=== PATIENT | male | born 1995 | race Caucasian/White ===

== ENCOUNTER 2022-02-14 01:33 | Emergency (ER) | payer SELFPAY ==
[2022-02-14 01:39] VITALS: BP 121/76; PULSE 96; RESP 20; TEMP 36.7; O2SAT 98; BMI 22.1
--- NOTE | 2022-02-14 01:50 | XRR_ITS ---
PROCEDURE INFORMATION: Exam: XR Right Foot Exam date and time: 02/14/2022 1:54 AM Age: 26 years old Clinical indication: Injury or trauma; Other: Kicked step; Blunt trauma; Foot; Right; Additional info: Accidentally kicked camper step-foot pain TECHNIQUE: Imaging protocol: XR Right foot. Views: 3 or more views. COMPARISON: No relevant prior studies available. FINDINGS: Bones/joints: Normal. Soft tissues: Normal. XR/XR foot RT min 3V* [id number] IMPRESSION: No acute findings.
--- NOTE | 2022-02-14 01:54 | W.ED.EXTPRO ---
HPI - Extremity Problem General: Chief complaint: Extremity Injury, Lower Stated complaint: Rt Foot Injury Time Seen by Provider: 02/14/22 01:34 History of Present Illness: Patient is a 26-year-old male comes to the ED with right foot injury. Injury occurred approximately 3-4 nights ago. Patient says walking up into his camper at night and excellently kicked one of the metal steps on the camper with his right foot. He is now having pain at the top and midfoot region along with pain in second toe. The pain is rated a 6 out of 10. He says it hurts whenever he weightbears. He has not taken anything for pain before coming to the ED. Associated symptoms: Deny chest pain, fever(s) or rash Review of Systems Const: Denies: fever(s), chills or fatigue Eyes: Denies: change in vision or eye discomfort ENMT: Denies: throat pain, odynophagia, nasal discharge or nasal congestion Card: Denies: chest pain, palpitations, edema, swelling of feet/ankles, dyspnea on exertion or orthopnea Resp: Denies: dyspnea, productive cough or non-productive cough GI: Denies: abdominal pain, nausea, vomiting, diarrhea, constipation or hematochezia : Denies: flank pain, difficulty urinating, dysuria or hematuria Musc: Reports: extremity pain (right foot pain and second toe pain.); Denies: neck pain, back pain or extremity swelling Skin/Breast: Denies: rash or new lesions Neuro: Denies: headache(s), numbness in extremities or weakness in extremities [facility] PFSH: Medical History No pertinent family history Surgical History No pertinent past surgical history Physical Exam Const: COMMON NORMALS: patient oriented x3 GENERAL APPEARANCE: cooperative and comfortable HENMT: COMMON NORMALS: normocephalic HEAD & SCALP: normocephalic MOUTH: Normal oral and palatal mucosa present THROAT: posterior oropharynx normal and uvula midline Neck/C-Spine: COMMON NORMALS: supple GENERAL: Yes normal visual inspection Resp: COMMON NORMALS: normal respiratory effort, No retractions, No use of accessory muscles and clear to auscultation bilaterally AUSCULTATION: clear to auscultation bilaterally Cardio: COMMON NORMALS: regular rate, regular rhythm, S1 normal heart sound present, S2 normal heart sound present, No gallops present (Cardio), No clicks present (Cardio), No murmurs present (Cardio) and Peripheral pulses 2+ throughout RATE: regular rate RHYTHM: regular rhythm HEART SOUNDS: S1 normal heart sound present and S2 normal heart sound present PERIPHERAL PULSES: Peripheral pulses 2+ throughout GI: COMMON NORMALS: Normal to inspection, nondistended, normoactive bowel sounds present, Soft to palpation, non-tender and no masses PALPATION: Yes Soft to palpation : COMMON NORMALS: Yes no CVA tenderness BLADDER/KIDNEY EXAM: Yes no CVA tenderness Back/Pelvis: COMMON NORMALS: no CVA tenderness Extremity: COMMON NORMALS: normal to inspection, full ROM and no pedal edema NARRATIVE EXTREMITY EXAM: No nailbed or nail damage noted on right foot. Neuro: COMMON NORMALS: patient oriented x3 and moves all extremities Skin: GENERAL SKIN EXAM: dry skin Course Vital Signs: Vital signs: Vital Signs Temperature 98.0 F 02/14/22 01:39 Pulse Rate 96 02/14/22 01:39 Respiratory Rate 20 H 02/14/22 01:39 Blood Pressure 121/76 02/14/22 01:39 Pulse Oximetry 98 02/14/22 01:39 MDM - Extremity (Nontraumatic) Medical Decision Making Patient is a 26-year-old male comes to the ED with right foot and second toe pain after he excellently kicked it on the metal step of his camper. Vital stable. Patient appears in no acute distress or pain. Exam of right foot is benign and no deformities or nailbed/nail damage noted. Neurovascular tact. X-ray of right foot shows a nondisplaced proximal phalanx fracture of second digit. Patient was put in a stiff soled shoe and discharged home with some crutches. I placed order with case management for patient to have follow-up with Dr. Eason. He was sent home with a prescription for hydrocodone for acute pain. Return to ED precautions given. Patient was told case management should contact them next several days set up an appointment with Dr. Eason. Patient understood and agreed with plan. Imaging Data Xray Ortho: My impression: Right foot x-ray shows a nondisplaced proximal phalanx fracture of second digit. Discharge Plan Discharge Patient Disposition: Home Clinical Impression: Fracture of toe of right foot Qualifiers: Encounter type: initial encounter Toe: lesser toe Fracture type: closed Phalanx: proximal Fracture alignment: nondisplaced Qualified Code(s): S92.514A - Nondisplaced fracture of proximal phalanx of right lesser toe(s), initial encounter for closed fracture Condition: Stable Discharge Orders: Discharge ED (Routine); Ordered 02/14/22 Ordered By: Chris Gonzáles Referrals: Phuong Calderon, [facility] [employer] [facility] [Primary Care Provider] - Discharge Diet: Regular Discharge Activity: Use walker/crutches as instructed Patient Instructions: Toe Fracture (ED) Activity Restrictions/Additional Instructions: Follow-up with medical provider as directed. manager of revenue regarding in the next several days set up appointment Dr. Eason the fern picker for further evaluation management of toe fracture.Take medications as prescribed. Wear stiff soled shoe and use crutches to limit weightbearing in these next couple days and you can advance weightbearing while wearing stiff soled shoe as tolerated. Return to the ER or your medical provider if condition worsens. Please read and understand discharge instructions. Thank you for choosing [facility] for your healthcare needs today. Please realize this is an emergency room and that we are providing you with a medical screening exam and this may not be complete and all inclusive of all the testing and or work up that you may need to determine your ailment or severity of your illness. It is very important that you follow up as instructed or that you return to the Emergency Department should you have concerns or if your condition changes or worsens in any way. Coding Level of Care Code ED Internist Medical Doctor Md for Alfreda Hay Exam Comprehensive
[2022-02-14] MEDS: HYDROcodone-acetaminophen 5-325 mg Tablet 1 TAB PO (02:06)
--- NOTE | 2022-02-15 10:05 | DCPLANNER ---
Addendum entered by Glenna Mott 03/10/22 20:33: Patient had a follow up appointment scheduled with ortho - patient did not attend appointment. Original Note: manager of corporate communications had message to schedule a follow up appointment for patient with ortho. manager of corporate communications sent patients information to the front staff at ortho. Patients information will be printed and reviewed. Clinic will call patient with appointment information.
== END 2022-02-14 02:45 | disposition home or self-care (01) ==
PROVIDERS: Emergency Provider Physician Assistant; PCP Speech-Language Pathologist
DX: S92.514A Nondisplaced fracture of proximal phalanx of right lesser toe(s), initial encounter for closed fracture (principal); W22.09XA Striking against other stationary object, initial encounter
CPT/HCPCS: 73630; 99283; E0114

== ENCOUNTER 2024-08-30 14:08 | Inpatient (IN) | payer BC, MEDICAID, SELFPAY ==
[2024-08-30] VITALS (45 sets, daily range): BP systolic 95–168; BP diastolic 46–102; PULSE 63–98; RESP 12–30; TEMP 36.6–36.9; O2SAT 92–100; BMI 21.5; BMI 22.4
--- NOTE | 2024-08-30 14:24 | CTR_ITS ---
PROCEDURE INFORMATION: Exam: CT Chest Without Contrast; Diagnostic Exam date and time: 08/30/2024 5:36 PM Age: 28 years old Clinical indication: Other: Lt sided pain; Chest wall pain; Additional info: Chest wall pain, left side pain TECHNIQUE: Imaging protocol: Diagnostic computed tomography of the chest without contrast. Radiation optimization: All CT scans at this facility use at least one of these dose optimization techniques: automated exposure control; mA and/or kV adjustment per patient size (includes targeted exams where dose is matched to clinical indication); or iterative reconstruction. COMPARISON: CR (CHEST, ) 08/30/2024 5:09 PM RADIATION DOSE METRICS: Total DLP (mGy-cm): 0 FINDINGS: Tubes, catheters and devices: The endotracheal tube is in good position within the trachea. Lungs: A few blebs are noted in the lung apices bilaterally. Pleural spaces: Unremarkable. No pneumothorax. No pleural effusion. Heart: Unremarkable. No cardiomegaly. No pericardial effusion. Coronary arteries: There is no evidence of coronary artery calcifications. Lymph nodes: Unremarkable. No enlarged lymph nodes. Vasculature: Unremarkable. No aortic aneurysm. Bones/joints: Unremarkable. No acute fracture. Soft tissues: Unremarkable. PROCEDURE INFORMATION: Exam: CT Abdomen And Pelvis Without Contrast Exam date and time: 08/30/2024 5:36 PM Age: 28 years old Clinical indication: Other: Lt sided pain; Chest wall pain; Additional info: Chest wall pain, left side pain TECHNIQUE: Imaging protocol: Computed tomography of the abdomen and pelvis without contrast. Radiation optimization: All CT scans at this facility use at least one of these dose optimization techniques: automated exposure control; mA and/or kV adjustment per patient size (includes targeted exams where dose is matched to clinical indication); or iterative reconstruction. COMPARISON: CR (CHEST, ) 08/30/2024 5:09 PM RADIATION DOSE METRICS: Total DLP (mGy-cm): 772.03 FINDINGS: Lungs: Lung bases are clear. No pleural effusion. Liver: Normal. No mass. Gallbladder and biliary ducts: Normal. No calcified stones. No ductal dilation. Pancreas: Normal. No ductal dilation. Spleen: Normal. No splenomegaly. Adrenal glands: Normal. No mass. Kidneys and ureters: Normal. No hydronephrosis. Stomach and bowel: Liquid stool is noted throughout the colon. Appendix: No evidence of appendicitis. Intraperitoneal space: Unremarkable. No free air. No significant fluid collection. Vasculature: Unremarkable. No abdominal aortic aneurysm. Lymph nodes: Unremarkable. No enlarged lymph nodes. Urinary bladder: Unremarkable as visualized. Reproductive: Unremarkable as visualized. Bones/joints: Unremarkable. No acute fracture. Soft tissues: Unremarkable. CT/[place] [id number] IMPRESSION: 1. No acute findings. 2. Endotracheal tube in good position 3. Mild paraseptal emphysema IMPRESSION: Liquid stool in the colon could indicate acute enterocolitis
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
[2024-08-30] MEDS: LORazepam 2 mg/mL INJ 1 mL 1 MG IVP ×2 (14:30→15:15)
[2024-08-30 14:53] LABS: Basophils # 0.1 10^3/uL (0.0-0.1); Basophils % 0.2 %; Eosinophils % 0.2 %; Hematocrit 46.8 % (37-53); Lymphocytes # 2.3 10^3/uL (0.8-4.8); Lymphocytes % 8.8 %; Mean Corpuscular HGB Conc 33.8 g/dL (30-55); Mean Corpuscular Hemoglobin 29.7 pg (27-33); Mean Platelet Volume 10.1 fL (7.4-10.4); Monocytes # 2.4 10^3/uL (0.2-0.9); Monocytes % 9.4 %; Neutrophils # 20.71 10^3/uL (1.8-7.7); Neutrophils % 80.5 %; Nucleated Red Blood Cells % 0 %; Platelet Count 403 10^3/cmm (157-399); Red Blood Count 5.32 10^6/uL (3.85-5.65); Red Cell Distribution Width 13.1 % (12.1-15.1); White Blood Count 25.72 10^3/uL (3.29-11.43)
[2024-08-30 15:09] LABS: Alanine Aminotransferase 55 U/L (0-41); Albumin Level 5.3 g/dL (3.5-5.2); Alcohol Level < 10 mg/dL (0-10); Alkaline Phosphatase 115 U/L (40-130); Aspartate Amino Transferase 123 U/L (0-40); Blood Urea Nitrogen 52 mg/dL (6-20); Calcium 9.5 mg/dL (8.5-10.5); Carbon Dioxide 20 mmol/L (22-29); Chloride 92 mmol/L (98-107); Creatinine Clr Calc Pharmacy 31.8443; Globulin 3.2 g/dL (1.3-4.6); Glomerular Filtration Rate 21.1 mL/min (90-130); Glucose 71 mg/dL (65-115); Lipase 16 U/L (13-60); Osmolality Calculated 299 mOsm/kg (285-295); Sodium 138 mmol/L (136-145); Total Bilirubin 1.2 mg/dL (0.15-1.2); Total Protein 8.5 g/dL (6.6-8.7)
[2024-08-30] MEDS: sodium chloride 0.9% 1,000 ML 999 ML IV (15:15)
--- NOTE | 2024-08-30 15:15 | ECG_ITS ---
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 Measurements Intervals [place] Rate: 110 P: 65 TN: 104 QRS: 87 QRSD: 89 T: 55 QT: 323 QTc: 439 Interpretive Statements Baseline significant artifact SINUS TACHYCARDIA ABNORMAL RHYTHM ECG No previous ECG available for comparison Electronically Signed On 08-30-2024 17:10:14 CDT by Shira Francois M.D. [email or web address]
[2024-08-30 15:22] LABS: Creatine Phosphokinase 5427 U/L (39-308)
[2024-08-30 16:17] LABS: Troponin(5th) Baseline 39 ng/L (0-15)
--- NOTE | 2024-08-30 16:21 | CTR_ITS ---
PROCEDURE INFORMATION: Exam: CT Head Without Contrast Exam date and time: 08/30/2024 5:30 PM Age: 28 years old Clinical indication: Injury or trauma; Fall TECHNIQUE: Imaging protocol: Computed tomography of the head without contrast. Radiation optimization: All CT scans at this facility use at least one of these dose optimization techniques: automated exposure control; mA and/or kV adjustment per patient size (includes targeted exams where dose is matched to clinical indication); or iterative reconstruction. COMPARISON: No relevant prior studies available. RADIATION DOSE METRICS: Total DLP (mGy-cm): 1131.68 FINDINGS: Brain: Normal. No hemorrhage. Unremarkable white matter. No mass effect. Cerebral ventricles: No ventriculomegaly. Paranasal sinuses: Visualized sinuses are unremarkable. No fluid levels. Mastoid air cells: Visualized mastoid air cells are well aerated. Bones: Unremarkable. No acute fracture. Soft tissues: Unremarkable. CT/CT head wo con* [id number] IMPRESSION: No acute intracranial abnormality.
--- NOTE | 2024-08-30 16:21 | CTR_ITS ---
PROCEDURE INFORMATION: Exam: CT Cervical Spine Without Contrast Exam date and time: 08/30/2024 5:32 PM Age: 28 years old Clinical indication: Pain; Additional info: Fall TECHNIQUE: Imaging protocol: Computed tomography of the cervical spine without contrast. Radiation optimization: All CT scans at this facility use at least one of these dose optimization techniques: automated exposure control; mA and/or kV adjustment per patient size (includes targeted exams where dose is matched to clinical indication); or iterative reconstruction. COMPARISON: CT head wo con* [id number] 08/30/2024 5:30 PM RADIATION DOSE METRICS: Total DLP (mGy-cm): 170.67 FINDINGS: Tubes, catheters and devices: There is an endotracheal tube present. The distal tip of the endotracheal tube is not included on the images provided. Bones: No acute fracture. Normal alignment. No significant disc bulge or herniation. No severe spinal canal stenosis. No significant neural foraminal narrowing. Lungs: Lung apices are normal. Soft tissues: Unremarkable. CT/CT cervical spin wo con* [id number] IMPRESSION: Unremarkable CT of the cervical spine.
[2024-08-30] MEDS: dextrose 10% 250 ML 1000 ML IV (16:41)
[2024-08-30] MEDS: calcium gluconate 0.1 gm/mL 10% SDV 10mL 1 GM IVP (16:41)
[2024-08-30] MEDS: insulin regular-human 100 units/1 mL 10 UNIT IVP (16:41)
[2024-08-30 17:00] LABS: Troponin 5 2HR 26.05 ng/L (0-15)
[2024-08-30 17:01] LABS: Troponin 5 2HR Delta -12.95 ABS# (0-10)
[2024-08-30] MEDS: etomidate 2 mg/mL INJ SDV 10 mL 20 MG IVP (17:03)
[2024-08-30] MEDS: vecuronium 10 mg SDV IVP (17:03)
--- NOTE | 2024-08-30 17:05 | XRR_ITS ---
PROCEDURE INFORMATION: Exam: XR Chest Exam date and time: 08/30/2024 5:09 PM Age: 28 years old Clinical indication: Device placement; Ett placement (vent status); Additional info: Post intubation TECHNIQUE: Imaging protocol: Radiologic exam of the chest. Views: 1 view. COMPARISON: No relevant prior studies available. FINDINGS: Tubes, catheters and devices: The endotracheal tube is in good position within the trachea. Lungs: Unremarkable. No consolidation or mass. Pleural spaces: Unremarkable. No pleural effusion. No pneumothorax. Heart/Mediastinum: Unremarkable. No cardiomegaly. Bones/joints: Unremarkable. XR/XR chest 1V portable [id number] IMPRESSION: Good endotracheal tube positioning
--- NOTE | 2024-08-30 17:07 | ECG_ITS ---
[facility] Test Date: 2024-08-30 Pat Name: Yves Jacinto Department: Room: Gender: Male [employer]: : 1995 Requested By: Jl Marte Order Number: [id number] Hardy MD: Shira Francois M.D. Measurements Intervals [place] Rate: 91 P: 73 [place]: 127 QRS: 86 QRSD: 98 T: 60 QT: 395 QTc: 488 Interpretive Statements SINUS RHYTHM Compared to ECG 08/30/2024 15:19:17 Sinus tachycardia no longer present Electronically Signed On 08-30-2024 17:13:53 CDT by Shira Francois M.D. [email or web address]
[2024-08-30] MEDS: propofol 1,000 MG/100 ML INJ 2.04 MG IV (17:10)
--- NOTE | 2024-08-30 17:10 | PC.NURSE ---
This nurse was unable to obtain a blood pressure at triage due to patient's erratic tweaking movements and he would not hold any part of his body still for me to obtain a blood pressure multiple times.
--- NOTE | 2024-08-30 17:52 | XRR_ITS ---
PROCEDURE INFORMATION: Exam: XR Chest Exam date and time: 08/30/2024 5:54 PM Age: 28 years old Clinical indication: Device placement; Other: Og tube TECHNIQUE: Imaging protocol: Radiologic exam of the chest. Views: 1 view. COMPARISON: [place] [id number] 08/30/2024 5:36 PM FINDINGS: Tubes, catheters and devices: Endotracheal tube tip in place 4.6 cm above the mariama. Enteric tube tip below the diaphragm over the gastric bubble. Lungs: Unremarkable. No consolidation. Pleural spaces: Unremarkable. No pleural effusion. No pneumothorax. Heart/Mediastinum: Unremarkable. No cardiomegaly. Bones/joints: Unremarkable. XR/XR chest 1V portable [id number] IMPRESSION: 1. Endotracheal tube tip in place 4.6 cm above the mariama. 2. Enteric tube tip below the diaphragm over the gastric bubble.
[2024-08-30] MEDS: fentaNYL 50 mcg/mL INJ 2mL IVP (18:15)
[2024-08-30] MEDS: midazolam hcl 100 MG/100 ML BAG IV (18:20)
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
[2024-08-30] MEDS: midazolam 1 mg/mL INJ 2 mL 2 MG IVP ×2 (18:37→18:40)
[2024-08-30] MEDS: vecuronium 10 mg SDV 100 MG IVP (18:40)
--- NOTE | 2024-08-30 18:40 | PC.NURSE ---
@1840 approx; pt attempted self-extubation. ED physician, multiple ED and ICU nurses, respiratory, pharmacy technology instructor present to room. MD gave verbal orders for IVP medications (see MAR). pt currently mechanically ventilated, sedated.
[2024-08-30 18:43] LABS: Partial Thromboplastin Time 25.5 SECONDS (23.9-36.7)
[2024-08-30] MEDS: fentaNYL 1,000 MCG/100 ML BAG 5 MCG IV (18:51)
[2024-08-30 19:01] LABS: Ketone (Acetest) Serum Negative (Negative)
[2024-08-30 19:02] LABS: Bilirubin Urine Negative (Negative); Blood Urine 3+ (Negative); Glucose Urine UA Negative (Normal); Ketones Urine 1+ (Negative); Leukocyte Esterase Urine Negative (Negative); Nitrate Urine Negative (Negative); Protein Urine Trace (Negative); Specific Gravity, Urine 1.013 (1.005-1.030); Urine Appearance Clear (CLEAR); Urine Color Yellow (Yellow); Urobilinogen Urine 0.2 mg/dL (Negative)
[2024-08-30 19:02] LABS: Erythrocyte Sedimentation Rate 5 mm/hr (0-10)
[2024-08-30 19:07] LABS: Add Urine Microscopic? YES; Bacteria Urine None Seen /hpf; Hyaline Casts Urine 8.67 /lpf; Squamous Epithelial Cell Urine 0-5 /hpf (0-5); WBC Urine 0-5 /hpf (0-5)
[2024-08-30 19:09] LABS: Amphetamines Screen Urine Positive (Negative); Barbiturates Screen Urine Negative (Negative); Benzodiazepines Screen Urine Negative (Negative); Cocaine Screen Urine Negative (Negative); Opiate Screen Urine Negative (Negative); PCP Screen Urine Negative (Negative); THC Screen Urine Negative (Negative)
[2024-08-30 19:13] LABS: Blood Urea Nitrogen 53 mg/dL (6-20); Calcium 9.6 mg/dL (8.5-10.5); Carbon Dioxide 18 mmol/L (22-29); Chloride 94 mmol/L (98-107); Glomerular Filtration Rate 21.1 mL/min (90-130); Glucose 57 mg/dL (65-115); Osmolality Calculated 306 mOsm/kg (285-295); Sodium 142 mmol/L (136-145)
[2024-08-30 19:18] LABS: Creatinine Clr Calc Pharmacy 31.8443
[2024-08-30] MEDS: enoxaparin 40 mg/0.4 mL Syringe SUBCUT (19:18)
[2024-08-30] MEDS: piperacillin-tazobactam 3.375 GM in sodium chloride 0.9% (plus) 50 ML IV (19:19)
[2024-08-30] MEDS: sodium chloride 0.9% 1,000 ML 125 ML IV (19:19)
[2024-08-30] MEDS: pantoprazole 40 mg SDV IVP (19:19)
[2024-08-30 19:21] LABS: UA Slide Review UA Slide Review Perf
[2024-08-30 19:23] LABS: HIV 1 & 2 Antibody Non-Reactive (Non-Reactiv); HIV 1 & 2 Antigen Non-Reactive (Non-Reactiv)
[2024-08-30 19:24] LABS: Procalcitonin 8.68 ng/mL (0-0.5); Thyroid Stimulating Hormone 0.81 uIU/mL (0.27-4.20)
[2024-08-30 19:26] LABS: Add Urine Culture? No
[2024-08-30 19:35] LABS: C Reactive Protein 9.3 mg/L (0.0-4.9)
[2024-08-30 19:36] LABS: Ammonia 47 umol/L (16-60)
[2024-08-30 19:41] LABS: Acetaminophen < 5.0 ug/mL (10-30); Salicylate < 0.3 mg/dL (3-10)
[2024-08-30] MEDS: linezolid premix 600 MG/300 ML PREMIX 300 MG IV (19:44)
[2024-08-30 20:06] LABS: Lactic Sepsis W/Reflex 4.6 mmol/L (0.5-2.2)
[2024-08-30 20:11] LABS: Reflex Lactate Order REFLEX LACTIC ORDERD
[2024-08-30 20:47] LABS: Estmated Average Glucose 108; Hemoglobin A1C 5.4 % (4.0-6.0)
[2024-08-30 20:59] LABS: Glucose Point of Care 109 mg/dL (70-110)
[2024-08-30 21:19] LABS: Lactic Acid level (Lactate) 1.8 mmol/L (0.5-2.2)
[2024-08-30 21:20] LABS: Troponin 5 6HR 13.46 ng/L (0-15)
[2024-08-30 21:21] LABS: Troponin 5 6HR Delta -25.54 ng/L (0-12)
--- NOTE | 2024-08-30 22:22 | ECG_ITS ---
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 Measurements Intervals [place] Rate: 65 P: 71 ME: 124 QRS: 87 QRSD: 101 T: 12 QT: 484 QTc: 504 Interpretive Statements SINUS RHYTHM PROLONGED QT INTERVAL Compared to ECG 08/30/2024 17:07:52 Prolonged QT interval now present Electronically Signed On 08-31-2024 12:24:02 CDT by Shira Francois M.D. [email or web address]
[2024-08-30 22:35] LABS: ABG PH Result 7.24 (7.35-7.45); Arterial Blood Gas Hematocrit 42.7 % (42-52); Base Excess ABG -9.9 mmol/L (-2.0-2.0); Blood Gas Allen Test Pos; Blood Gas Operator Identificat SAM; Blood Gas Sample Site Radial, right; Blood Gas Sample Type Arterial; HCO3 ABG 16.8 mmol/L (22-26); Oxygen Device VENT; PO2 FiO2 Ratio Arterial Blood 236
[2024-08-30 23:32] LABS: Hepatitis A Antibody IgM Non-Reactive (Nonreactive); Hepatitis B Core IgM Non-Reactive (Nonreactive); Hepatitis B Surface Antigen Non-Reactive (Nonreactive); Hepatitis C Virus Antibody Non-Reactive (Nonreactive)
[2024-08-31] VITALS (92 sets, daily range): BP systolic 82–131; BP diastolic 39–84; PULSE 52–87; RESP 0–20; TEMP 35.9–36.9; O2SAT 95–100; BMI 22.6
[2024-08-31] MEDS: piperacillin-tazobactam 3.375 GM in sodium chloride 0.9% (plus) 50 ML IV ×3 (02:19→16:53)
[2024-08-31] MEDS: propofol 1,000 MG/100 ML INJ 10.21 MG IV (02:22)
[2024-08-31 03:44] LABS: ABG PCO2 38.2 mmHg (35-45); ABG PH Result 7.31 (7.35-7.45); Arterial Blood Gas Hematocrit 42.1 % (42-52); Base Excess ABG -6.4 mmol/L (-2.0-2.0); Blood Gas Allen Test Pos; Blood Gas Operator Identificat SAM; Blood Gas Sample Site Radial, right; Blood Gas Sample Type Arterial; HCO3 ABG 19.3 mmol/L (22-26); Oxygen Device VENT; PO2 FiO2 Ratio Arterial Blood 352
[2024-08-31] MEDS: sodium chloride 0.9% 1,000 ML 125 ML IV ×3 (04:01→19:59)
[2024-08-31 04:32] LABS: Basophils # 0.1 10^3/uL (0.0-0.1); Basophils % 0.2 %; Eosinophils % 0.1 %; Hematocrit 46.8 % (37-53); Lymphocytes # 4.7 10^3/uL (0.8-4.8); Lymphocytes % 21.7 %; Mean Corpuscular HGB Conc 32.1 g/dL (30-55); Mean Corpuscular Hemoglobin 30.1 pg (27-33); Mean Corpuscular Volume 93.8 fl (82-101); Mean Platelet Volume 10.1 fL (7.4-10.4); Monocytes # 2.9 10^3/uL (0.2-0.9); Monocytes % 13.2 %; Neutrophils # 13.99 10^3/uL (1.8-7.7); Neutrophils % 64.3 %; Nucleated Red Blood Cells % 0 %; Platelet Count 302 10^3/cmm (157-399); Red Blood Count 4.99 10^6/uL (3.85-5.65); Red Cell Distribution Width 13.5 % (12.1-15.1); White Blood Count 21.76 10^3/uL (3.29-11.43)
[2024-08-31 04:48] LABS: C Reactive Protein 11.6 mg/L (0.0-4.9)
[2024-08-31 04:49] LABS: Alanine Aminotransferase 44 U/L (0-41); Albumin Level 4.2 g/dL (3.5-5.2); Alkaline Phosphatase 85 U/L (40-130); Blood Urea Nitrogen 43 mg/dL (6-20); Calcium 8.4 mg/dL (8.5-10.5); Carbon Dioxide 17 mmol/L (22-29); Chloride 102 mmol/L (98-107); Creatinine Clr Calc Pharmacy 62.9522; Glomerular Filtration Rate 45.5 mL/min (90-130); Glucose 80 mg/dL (65-115); Osmolality Calculated 290 mOsm/kg (285-295); Phosphorus 4.6 mg/dL (2.5-4.5); Sodium 135 mmol/L (136-145); Total Bilirubin 1.6 mg/dL (0.15-1.2); Total Protein 6.2 g/dL (6.6-8.7)
[2024-08-31 04:52] LABS: Anion Gap 20.8 (5-19); Potassium 4.8 mmol/L (3.5-5.1)
[2024-08-31 04:53] LABS: Aspartate Amino Transferase 105 U/L (0-40)
[2024-08-31 05:07] LABS: Creatine Phosphokinase 4303 U/L (39-308)
[2024-08-31 05:13] LABS: Procalcitonin 2.71 ng/mL (0-0.5)
[2024-08-31 05:32] LABS: Glucose Point of Care 102 mg/dL (70-110)
[2024-08-31] MEDS: linezolid premix 600 MG/300 ML PREMIX 300 MG IV ×2 (05:54→18:14)
[2024-08-31] MEDS: dexmedeTOMIDine 0.9 % NaCL 400 MCG/100 ML PREMIX IV (11:06)
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
[2024-08-31 15:54] LABS: Alanine Aminotransferase 40 U/L (0-41); Albumin Level 3.7 g/dL (3.5-5.2); Alkaline Phosphatase 80 U/L (40-130); Aspartate Amino Transferase 89 U/L (0-40); Blood Urea Nitrogen 31 mg/dL (6-20); Calcium 7.9 mg/dL (8.5-10.5); Carbon Dioxide 21 mmol/L (22-29); Chloride 103 mmol/L (98-107); Creatinine Clr Calc Pharmacy 81.1614; Globulin 2.1 g/dL (1.3-4.6); Glomerular Filtration Rate 60.8 mL/min (90-130); Glucose 87 mg/dL (65-115); Osmolality Calculated 284 mOsm/kg (285-295); Sodium 134 mmol/L (136-145); Total Bilirubin 1.3 mg/dL (0.15-1.2); Total Protein 5.8 g/dL (6.6-8.7)
--- NOTE | 2024-08-31 16:58 | PC.NURSE ---
Waste Versed Wasted 50 mls Versed with MICHAEL Andrea.
[2024-08-31] MEDS: pantoprazole 40 mg SDV IVP (18:14)
[2024-08-31] MEDS: enoxaparin 40 mg/0.4 mL Syringe SUBCUT (18:14)
[2024-08-31] MEDS: fentaNYL 1,000 MCG/100 ML BAG 5 MCG IV (20:18)
[2024-08-31] MEDS: propofol 1,000 MG/100 ML INJ 2.04 MG IV (20:31)
[2024-09-01] VITALS (35 sets, daily range): BP systolic 98–144; BP diastolic 41–75; PULSE 42–74; RESP 8–18; TEMP 36.6–36.9; O2SAT 95–100
[2024-09-01] MEDS: piperacillin-tazobactam 3.375 GM in sodium chloride 0.9% (plus) 50 ML IV ×3 (01:21→16:59)
[2024-09-01] MEDS: sodium chloride 0.9% 1,000 ML 125 ML IV ×3 (03:45→22:31)
[2024-09-01 05:56] LABS: Basophils % 0.1 %; Eosinophils # 0.1 10^3/uL (0.0-0.8); Eosinophils % 0.5 %; Hematocrit 38.5 % (37-53); Lymphocytes # 3.3 10^3/uL (0.8-4.8); Lymphocytes % 29.9 %; Mean Corpuscular HGB Conc 31.4 g/dL (30-55); Mean Corpuscular Hemoglobin 29.5 pg (27-33); Mean Corpuscular Volume 93.9 fl (82-101); Mean Platelet Volume 10.3 fL (7.4-10.4); Monocytes # 1.3 10^3/uL (0.2-0.9); Monocytes % 12.2 %; Neutrophils # 6.27 10^3/uL (1.8-7.7); Nucleated Red Blood Cells % 0 %; Platelet Count 235 10^3/cmm (157-399); Red Cell Distribution Width 13.7 % (12.1-15.1)
[2024-09-01 06:00] LABS: ABG PCO2 44.4 mmHg (35-45); ABG PH Result 7.34 (7.35-7.45); Arterial Blood Gas Hematocrit 37.9 % (42-52); Base Excess ABG -2.3 mmol/L (-2.0-2.0); Blood Gas Operator Identificat SAM; Blood Gas Sample Site Brachial, right; Blood Gas Sample Type Venous; HCO3 ABG 23.7 mmol/L (22-26); Oxygen Device VENT; PO2 ABG 32.3 mmHg (80.0-100.0); PO2 FiO2 Ratio Arterial Blood 134
[2024-09-01] MEDS: linezolid premix 600 MG/300 ML PREMIX 300 MG IV (06:16)
[2024-09-01 06:21] LABS: C Reactive Protein 31.6 mg/L (0.0-4.9)
[2024-09-01 06:22] LABS: Alanine Aminotransferase 35 U/L (0-41); Albumin Level 3.4 g/dL (3.5-5.2); Alkaline Phosphatase 76 U/L (40-130); Anion Gap 15.1 (5-19); Aspartate Amino Transferase 71 U/L (0-40); Blood Urea Nitrogen 21 mg/dL (6-20); Calcium 7.9 mg/dL (8.5-10.5); Carbon Dioxide 20 mmol/L (22-29); Chloride 107 mmol/L (98-107); Creatinine Clr Calc Pharmacy 128.3457; Globulin 2.1 g/dL (1.3-4.6); Glomerular Filtration Rate 101.2 mL/min (90-130); Glucose 78 mg/dL (65-115); Magnesium 2.3 mg/dL (1.7-2.3); Osmolality Calculated 288 mOsm/kg (285-295); Phosphorus 1.8 mg/dL (2.5-4.5); Potassium 4.1 mmol/L (3.5-5.1); Sodium 138 mmol/L (136-145); Total Bilirubin 0.9 mg/dL (0.15-1.2); Total Protein 5.5 g/dL (6.6-8.7)
[2024-09-01 06:26] LABS: Procalcitonin 1.29 ng/mL (0-0.5)
[2024-09-01 06:38] LABS: Creatine Phosphokinase 1540 U/L (39-308)
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
--- NOTE | 2024-09-01 09:18 | PC.NURSE ---
wasted prop , fent, and precedex witness Dionna RN
--- NOTE | 2024-09-01 13:51 | PC.NURSE ---
report given and transfered to floor
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
[2024-09-01] MEDS: pantoprazole 40 mg SDV IVP (17:56)
[2024-09-01] MEDS: enoxaparin 40 mg/0.4 mL Syringe SUBCUT (17:56)
[2024-09-02] VITALS (7 sets, daily range): BP systolic 110–175; BP diastolic 64–98; PULSE 59–90; RESP 15–18; TEMP 36.6–37.1; O2SAT 96–100
[2024-09-02] MEDS: piperacillin-tazobactam 3.375 GM in sodium chloride 0.9% (plus) 50 ML IV ×2 (01:16→09:12)
[2024-09-02] MEDS: sodium chloride 0.9% 1,000 ML 125 ML IV (05:08)
[2024-09-02 06:38] LABS: Basophils % 0.1 %; Eosinophils # 0.1 10^3/uL (0.0-0.8); Eosinophils % 0.6 %; Hematocrit 36.4 % (37-53); Lymphocytes # 2.5 10^3/uL (0.8-4.8); Lymphocytes % 26.4 %; Mean Corpuscular HGB Conc 33.8 g/dL (30-55); Mean Corpuscular Volume 91.7 fl (82-101); Mean Platelet Volume 10.8 fL (7.4-10.4); Monocytes # 1.1 10^3/uL (0.2-0.9); Monocytes % 11.3 %; Neutrophils % 61.3 %; Nucleated Red Blood Cells % 0 %; Platelet Count 258 10^3/cmm (157-399); Red Blood Count 3.97 10^6/uL (3.85-5.65); Red Cell Distribution Width 13.5 % (12.1-15.1); White Blood Count 9.47 10^3/uL (3.29-11.43)
[2024-09-02 07:03] LABS: Alanine Aminotransferase 30 U/L (0-41); Albumin Level 3.1 g/dL (3.5-5.2); Alkaline Phosphatase 69 U/L (40-130); Anion Gap 11.8 (5-19); Aspartate Amino Transferase 50 U/L (0-40); Blood Urea Nitrogen 8 mg/dL (6-20); Calcium 7.8 mg/dL (8.5-10.5); Carbon Dioxide 25 mmol/L (22-29); Chloride 108 mmol/L (98-107); Globulin 2.1 g/dL (1.3-4.6); Glomerular Filtration Rate 161.6 mL/min (90-130); Glucose 98 mg/dL (65-115); Magnesium 1.8 mg/dL (1.7-2.3); Osmolality Calculated 290 mOsm/kg (285-295); Phosphorus 1.5 mg/dL (2.5-4.5); Potassium 3.8 mmol/L (3.5-5.1); Sodium 141 mmol/L (136-145); Total Bilirubin 0.4 mg/dL (0.15-1.2); Total Protein 5.2 g/dL (6.6-8.7)
[2024-09-02 07:04] LABS: C Reactive Protein 26.5 mg/L (0.0-4.9); Creatinine Clr Calc Pharmacy 192.5185
[2024-09-02 07:52] LABS: Creatine Phosphokinase 604 U/L (39-308)
--- NOTE | 2024-09-02 10:42 | P.DS_ITS ---
Discharge Providers Date of Admission: 08/30/24 19:35 Date of Discharge: September 02, 2024 Attending Provider at Admission: Jacoby Saez MD Attending Provider at Discharge: Jacoby Saez MD Primary Care Provider: LAZARO Agarwal Diagnoses at Discharge Discharge Diagnosis (1) Fall: Status: Acute (2) Altered mental status: Status: Acute (3) Rhabdomyolysis: Status: Acute (4) Acute kidney injury: Status: Acute (5) Uremia: Status: Acute (6) Leukocytosis: Status: Acute (7) Increased anion gap metabolic acidosis: Status: Acute (8) Hyperkalemia: Status: Acute (9) Elevated troponin: Status: Acute (10) Transaminitis: Status: Acute (11) Endotracheally intubated: Status: Acute (12) Pneumonia: Status: Acute Reason for Visit Reason for Visit: LEFT SIDE PAIN Hospital Course Hospital Course Yves Jacinto is a 28 year old male with no known past medical history, possible methamphetamine use, who presents to [facility] for fall, altered mental status. Currently patient is intubated, sedated on mechanical ventilation, no history could be provided from the patient. According to ER provider patient was walking around a [employer] bed earlier on today, when he slipped and fell into the [employer] bed, it was running water so he went downstream is not exactly clear how far he went downstream but he did hit something hard possibly a rock, on his left side, he was complaining of chest wall pain in the emergency room, reported methamphetamine use. He was able to pull him outside of a [employer] bed, sat up on the side until ambulance and police came and examined him. On examination he was very agitated, confused, altered mental status the emergency room, he was intubated in the emergency room to protect his airway. Patient was admitted to [facility] for altered mental status, intubated for airway protection, with uremia, rhabdomyolysis, aspiration pneumonia, JEWELS, increased anion gap metabolic acidosis, transaminitis, leukocytosis. Patient overall clinically improved, extubated, to room air, monitor in the ICU, moved to medical floors, overall did well. Patient is up and ambulatory on his own, remains afebrile, remains on room air, discharged on 5 remaining days of Augmentin for pneumonia. For his rhabdomyolysis, JEWELS, increased anion gap metabolic acidosis, hyperkalemia, improved with IV hydration, patient will be discharged with instructions to drink plenty of electrolyte balanced fluids, follow-up with primary care as outpatient. For patient's fall, CT imaging of his head, neck, chest abdomen pelvis had no acute findings. Patient was ambulatory, had no significant pain complaints, no weakness complaints, alert oriented x 3, following all commands, no focal weakness, neurologically intact, discharged home. Patient was advised to abstain from drug use. Physical Exam Const: COMMON NORMALS: no acute distress and patient oriented x3 Resp: COMMON NORMALS: normal respiratory effort, No retractions, No use of accessory muscles and clear to auscultation bilaterally AUSCULTATION: clear to auscultation bilaterally Cardio: COMMON NORMALS: regular rate, regular rhythm, S1 normal heart sound present and S2 normal heart sound present RATE: regular rate RHYTHM: regular rhythm HEART SOUNDS: S1 normal heart sound present and S2 normal heart sound present GI: COMMON NORMALS: Normal to inspection, nondistended, normoactive bowel sounds present and non-tender Extremity: COMMON NORMALS: no pedal edema Neuro: COMMON NORMALS: patient oriented x3, CN's II-XII intact bilaterally, moves all extremities, no focal motor deficits and no sensory deficits noted Psych: COMMON NORMALS: mental status grossly normal, cooperative, speech normal, denies hallucinations, denies homicidal ideation and denies suicidal ideation SPEECH: Yes normal speech Urinary Catheter Management: Disla: Cath Placed During This Visit: yes, but has since been removed by the nurse Reason for Continuing Indwelling Catheter: Accurate Measurement of Urinary Output in Critically Ill Patients Urinary Catheter Date of Insertion: 08/30/24 Urinary Catheter Time of Insertion: 18:55 Date Urinary Catheter Removed: 09/01/24 Time Urinary Catheter Discontinued: 09:06 Discharge Data Studies Completed and Pending Completed Studies During Hospitalization Category Date Time Status CT cervical spine wo con [CT cervical spin wo con* Cat Scan 08/30/24 16:21 Completed 79983] [place] [address]/[id number] Stat Cat Scan 08/30/24 14:[address] head wo con* [id number] Urgent Cat Scan 08/30/24 16:21 Completed CXRP [XR chest 1V portable [id number]] Stat Exams 08/30/24 17:05 Completed XR chest 1V portable [id number] Stat Exams 08/30/24 17:52 Completed Pending at discharge Category Date Time Status Blood Culture Stat Lab 08/30/24 19:15 Results Sputum Culture and Gram Stain Routine Lab 08/31/24 08:29 Results Radiology Impressions Chest/Abdomen/Pelvis CT 08/30/24 14:24 IMPRESSION: 1. No acute findings. 2. Endotracheal tube in good position 3. Mild paraseptal emphysema IMPRESSION: Liquid stool in the colon could indicate acute enterocolitis Cervical Spine CT 08/30/24 16:21 IMPRESSION: Unremarkable CT of the cervical spine. Head CT 08/30/24 16:21 IMPRESSION: No acute intracranial abnormality. Chest X-Ray 08/30/24 17:52 IMPRESSION: 1. Endotracheal tube tip in place 4.6 cm above the mariama. 2. Enteric tube tip below the diaphragm over the gastric bubble. Laboratory Results WBC 9.47 10^3/uL (3.29-11.43) 09/02/24 05:44 RBC 3.97 10^6/uL (3.85-5.65) 09/02/24 05:44 Hgb 12.30 g/dL (11.27-16.99) 09/02/24 05:44 Hct 36.4 % (37-53) L 09/02/24 05:44 MCV 91.7 fl (82-101) 09/02/24 05:44 MCH 31.0 pg (27-33) 09/02/24 05:44 MCHC 33.8 g/dL (30-55) D 09/02/24 05:44 RDW 13.5 % (12.1-15.1) 09/02/24 05:44 Plt Count 258 10^3/cmm (157-399) 09/02/24 05:44 MPV 10.8 fL (7.4-10.4) H 09/02/24 05:44 Neut % (Auto) 61.3 % 09/02/24 05:44 Lymph % (Auto) 26.4 % 09/02/24 05:44 [place] % (Auto) 11.3 % 09/02/24 05:44 Eos % (Auto) 0.6 % 09/02/24 05:44 Baso % (Auto) 0.1 % 09/02/24 05:44 Neut # (Auto) 5.80 10^3/uL (1.8-7.7) 09/02/24 05:44 Lymph # (Auto) 2.5 10^3/uL (0.8-4.8) 09/02/24 05:44 [place] # (Auto) 1.1 10^3/uL (0.2-0.9) H 09/02/24 05:44 Eos # (Auto) 0.1 10^3/uL (0.0-0.8) 09/02/24 05:44 Baso # (Auto) 0.0 10^3/uL (0.0-0.1) 09/02/24 05:44 Nucleated RBC % (auto) 0 % 09/02/24 05:44 Nucleated RBCs # 0.0 /100WBC 09/02/24 05:44 ESR 5 mm/hr (0-10) 08/30/24 14:41 PT 15.60 SECONDS (12.1-14.9) H 08/30/24 14:41 INR 1.20 (0.8-1.2) 08/30/24 14:41 APTT 25.5 SECONDS (23.9-36.7) 08/30/24 14:41 Specimen Type Venous 09/01/24 05:48 Sample Site Brachial, right 09/01/24 05:48 ABG pH 7.34 (7.35-7.45) L 09/01/24 05:48 ABG pCO2 44.4 mmHg (35-45) 09/01/24 05:48 ABG pO2 32.3 mmHg (80.0-100.0) L* 09/01/24 05:48 ABG PO2/FiO2 Ratio 134 09/01/24 05:48 ABG HCO3 23.7 mmol/L (22-26) 09/01/24 05:48 ABG Base Excess -2.3 mmol/L (-2.0-2.0) L 09/01/24 05:48 Edil Test N/a 09/01/24 05:48 Hematocrit 37.9 % (42-52) L 09/01/24 05:48 O2 Delivery Device Vent 09/01/24 05:48 FiO2 24.0 % 09/01/24 05:48 Tidal Volume 0.50 09/01/24 05:48 PEEP 5.0 cmH20 09/01/24 05:48 Ophthalmic Tech ID Sanju 09/01/24 05:48 Sodium 141 mmol/L (136-145) 09/02/24 05:44 Potassium 3.8 mmol/L (3.5-5.1) 09/02/24 05:44 Chloride 108 mmol/L (98-107) H 09/02/24 05:44 Carbon Dioxide 25 mmol/L (22-29) 09/02/24 05:44 Anion Gap 11.8 (5-19) 09/02/24 05:44 BUN 8 mg/dL (6-20) 09/02/24 05:44 Creatinine 0.6 mg/dL (0.7-1.2) L 09/02/24 05:44 GFR Calculation 161.6 mL/min (90-130) H 09/02/24 05:44 Glucose 98 mg/dL (65-115) 09/02/24 05:44 POC Glucose 109 mg/dL (70-110) 08/30/24 20:57 Estimat Average Glucose 108 08/30/24 14:41 Hemoglobin A1c 5.4 % (4.0-6.0) 08/30/24 14:41 Calculated Osmolality 290 mOsm/kg (285-295) 09/02/24 05:44 Lactic Acid 4.6 mmol/L (0.5-2.2) H* 08/30/24 14:41 Lactic Acid (Sepsis) 1.8 mmol/L (0.5-2.2) 08/30/24 20:40 Calcium 7.8 mg/dL (8.5-10.5) L 09/02/24 05:44 Phosphorus 1.5 mg/dL (2.5-4.5) L 09/02/24 05:44 Magnesium 1.8 mg/dL (1.7-2.3) 09/02/24 05:44 Total Bilirubin 0.4 mg/dL (0.15-1.2) 09/02/24 05:44 AST 50 U/L (0-40) H 09/02/24 05:44 ALT 30 U/L (0-41) 09/02/24 05:44 Alkaline Phosphatase 69 U/L (40-130) 09/02/24 05:44 Ammonia 47 umol/L (16-60) 08/30/24 19:10 Creatine Kinase 604 U/L (39-308) H* 09/02/24 05:44 Troponin T Baseline 39 ng/L (0-15) H 08/30/24 14:41 Troponin T 120 Minute 26.05 ng/L (0-15) H 08/30/24 16:37 Delta Troponin T -12.95 ABS# (0-10) L 08/30/24 16:37 Troponin T Hi Sens 6Hr 13.46 ng/L (0-15) 08/30/24 20:40 Troponin T Hi Sens 6Hr Delta -25.54 ng/L (0-12) L 08/30/24 20:40 C-Reactive Protein 26.5 mg/L (0.0-4.9) H 09/02/24 05:44 Total Protein 5.2 g/dL (6.6-8.7) L 09/02/24 05:44 Albumin 3.1 g/dL (3.5-5.2) L 09/02/24 05:44 Globulin 2.1 g/dL (1.3-4.6) 09/02/24 05:44 Lipase 16 U/L (13-60) 08/30/24 14:41 Procalcitonin 0.50 ng/mL (0-0.5) 09/02/24 05:44 TSH 0.81 uIU/mL (0.27-4.20) 08/30/24 14:41 Urine Color Yellow (Yellow) 08/30/24 18:50 Urine Appearance Clear (CLEAR) 08/30/24 18:50 Urine pH 5.0 (5-7) 08/30/24 18:50 Ur Specific [place] 1.013 (1.005-1.030) 08/30/24 18:50 Urine Protein Trace (Negative) A 08/30/24 18:50 Urine Glucose (UA) Negative (Normal) 08/30/24 18:50 Urine Ketones 1+ (Negative) H 08/30/24 18:50 Urine Blood 3+ (Negative) A 08/30/24 18:50 Urine Nitrate Negative (Negative) 08/30/24 18:50 Urine Bilirubin Negative (Negative) 08/30/24 18:50 Urine Urobilinogen 0.2 mg/dL (Negative) 08/30/24 18:50 Ur Leukocyte Esterase Negative (Negative) 08/30/24 18:50 Urine RBC 3-5 /hpf (0-2) 08/30/24 18:50 Urine WBC 0-5 /hpf (0-5) 08/30/24 18:50 Ur Squamous Epith Cells 0-5 /hpf (0-5) 08/30/24 18:50 Amorphous Sediment Not Reportable 08/30/24 18:50 Urine Bacteria None seen /hpf (NONE) 08/30/24 18:50 Hyaline Casts 8.67 /lpf 08/30/24 18:50 Salicylates < 0.3 mg/dL (3-10) L 08/30/24 14:41 Urine Opiates Screen Negative ng/mL (Negative) 08/30/24 18:50 Acetaminophen < 5.0 ug/mL (10-30) L 08/30/24 14:41 Ur Barbiturates Screen Negative ng/mL (Negative) 08/30/24 18:50 Ur Phencyclidine Scrn Negative ng/mL (Negative) 08/30/24 18:50 Ur Amphetamines Screen Positive ng/mL (Negative) H 08/30/24 18:50 U Benzodiazepines Scrn Negative ng/mL (Negative) 08/30/24 18:50 Urine Cocaine Screen Negative ng/mL (Negative) 08/30/24 18:50 U Marijuana (THC) Screen Negative ng/mL (Negative) 08/30/24 18:50 Ethyl Alcohol < 10 mg/dL (0-10) 08/30/24 14:41 Serum Ketones Negative (Negative) 08/30/24 14:41 Hepatitis A IgM Ab Non-reactive (Nonreactive) 08/30/24 14:41 Hep Bs Antigen Non-reactive (Nonreactive) 08/30/24 14:41 Hep B Core IgM Ab Non-reactive (Nonreactive) 08/30/24 14:41 Hepatitis C Antibody Non-reactive (Nonreactive) 08/30/24 14:41 HIV 1&2 Ab & HIV 1 Ag Non-reactive (Non-Reactiv) 08/30/24 14:41 HIV 1&2 Antibody Non-reactive (Non-Reactiv) 08/30/24 14:41 Vitals Last Vital Signs Temp 97.8 F 09/02/24 08:00 Pulse 72 09/02/24 08:12 Resp 16 09/02/24 08:12 BP 121/82 09/02/24 08:00 Pulse Ox 100 09/02/24 08:12 O2 Del Method Room Air 09/02/24 08:12 FiO2 24 09/01/24 08:41 Discharge Plan Discharge Patient Disposition: Home Condition: Stable Prescriptions: New amoxicillin-pot clavulanate 875-125 mg tablet 1 tab PO BID 5 Days Qty: 10 0RF Continued bupropion HCl 150 mg tablet extended release 24 hr 150 mg PO QAM Discharge Orders: Discharge Order (Routine); Ordered 09/02/24 Ordered By: Jacoby Saez Referrals: Heidy Bennett MD [Physician] - 4-7 days Phuong Calderon, BIOCHEMISTRY TECHNICIAN [Primary Care Provider] - Discharge Diet: Regular Discharge Activity: Resume usual activity Patient Instructions: Opioid Safety Activity Restrictions/Additional Instructions: - Drink at least 2 L of electrolyte balanced fluids a day -Recheck kidney function in 1 week ? Take antibiotics as prescribed -If you develop any shortness of breath, chest pain, weakness, lightheadedness please go to the emergency room -Please abstain from drug use -Please abstain from ibuprofen use or naproxen or Aleve -Can use Tylenol for pain Discharge Attestations Time Spent in Discharge Care*: greater than 30 min Quality Metrics Clinical Quality Measures [ No reported AMI, CVA or VTE this stay] Coding Level of Care Code 03528 Total time (in minutes) for Discharge: 45 Diagnoses Fall W19.XXXA Altered mental status R41.82 Rhabdomyolysis M62.82 Acute kidney injury N17.9 Uremia N19 Leukocytosis D72.829 Increased anion gap metabolic acidosis E87.29 Hyperkalemia E87.5 Elevated troponin R79.89 Transaminitis R74.01 Endotracheally intubated Z97.8 Pneumonia J18.9
== END 2024-09-02 12:20 | disposition home or self-care (01) | DRG 208 ==
LOC: ER 19:16 → ICU 19:36 → MEDSURG 09-01 13:44
PROVIDERS: Admitting Provider Family Medicine; Emergency Provider Physician Assistant; PCP Speech-Language Pathologist; Visit Provider Family Medicine
DX: J69.0 Pneumonitis due to inhalation of food and vomit (principal); G93.40 Encephalopathy, unspecified; M62.82 Rhabdomyolysis; N17.9 Acute kidney failure, unspecified; E87.20 Acidosis, unspecified; R10.9 Unspecified abdominal pain; W01.198A Fall on same level from slipping, tripping and stumbling with subsequent striking against other object, initial encounter; F15.90 Other stimulant use, unspecified, uncomplicated; R45.1 Restlessness and agitation; E87.5 Hyperkalemia; R79.89 Other specified abnormal findings of blood chemistry
CPT/HCPCS: 36415; 36416; 36600; 51702; 70450; 71045; 71250; 72125; 74176; 80048; 80053; 80074; 80306; 80307; 81001; 82009; 82140; 82550; 82803; 82962; 83036; 83605; 83690; 83735; 84100; 84145; 84443; 84484; 85025; 85610; 85651; 85730; 86140; 87040; 87070; 87205; 87806; 92610; 93005; 94002; 94003; 94664; 94799; 96365; 96366; 96367; 96372; 96375; 96376; 97161; 97165; 99291; 99292; J0612; J1650; J1815; J2020; J2060; J2250; J2470; J2543; J2704; J3010; J3490; J7030; J7799